=== PATIENT | male | born 1940 | race Caucasian/White ===

== ENCOUNTER 2016-09-16 08:31 | Emergency (ER) | payer MEDICARE, BC ==
[2016-09-16] MEDS ORDERED: DIPHTH,PERTUSS(ACELL),TET VAC 0.5 ML VIAL IM ONE ×2 (09:02→12:33)
[2016-09-16] MEDS ORDERED: MORPHINE SULFATE 4 MG/ML SYRG ONE (09:02)
[2016-09-16] MEDS ORDERED: MORPHINE SULFATE 4 MG/ML SYRG SC ONE (09:02)
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
[2016-09-16 10:04] LABS: Hematocrit 57.1 % (42.0-52.0); Hemoglobin 19.1 gm/dL (13.5-18.0); Mean Cell Volume 93.5 fl (78-100); Mean Corpuscular Hemoglobin 31.3 pg (27-31); Mean Corpuscular Hgb Conc 33.5 g/dl (32-36); Mean Platelet Volume 9.8 fl (6.0-9.5); Neutrophil % 83.8 % (42-75.0); Platelet Count 217 K/mm3 (150-450); Red Blood Count 6.11 M/mm3 (4.7-6.0); Red Cell Distribution Width 13.2 % (11.5-14.0); White Blood Count 20.3 K/mm3 (4.0-10.5)
[2016-09-16] MEDS ORDERED: HYDROmorphone HCL 1 MG/ML DISP.SYRIN IV ONE ×2 (10:07→12:47)
[2016-09-16] MEDS ORDERED: HYDROmorphone HCL 1 MG/ML DISP.SYRIN ONE ×2 (10:08→12:46)
[2016-09-16 10:11] LABS: Prothrombin Time (Patient) 11.6 Seconds (9.4-11.4)
[2016-09-16] MEDS ORDERED: ONDANSETRON HCL/PF 2 MG/ML VIAL ONE (10:11)
[2016-09-16 10:12] LABS: INR 1.12 INR (0.90-1.10)
[2016-09-16] MEDS ORDERED: ONDANSETRON HCL/PF 2 MG/ML VIAL IV ONE (10:15)
[2016-09-16 10:16] LABS: Albumin * 4.1 gm/dl (3.4-5.0); Anion Gap 9.8 mmol/L (6.8-13.8); BUN/Creatinine Ratio 17.8 (9.0-21.6); Bilirubin, Total 0.9 mg/dL (0.0-1.1); Calcium * 9.4 mg/dL (7.9-10.9); Carbon Dioxide 33.8 mmol/L (24-32.6); Potassium 4.6 mmol/L (3.4-4.6)
[2016-09-16 12:05] LABS: Urine Bilirubin Negative (NEGATIVE); Urine Blood 250 /ul (NEGATIVE); Urine Ketone Negative (NEGATIVE); Urine Nitrite Negative (NEGATIVE); Urine Protein 100 mg/dL (NEGATIVE); Urine Urobilinogen Normal (NORMAL)
[2016-09-16 12:15] LABS: Urine Appearance Clear; Urine Bacteria 1+; Urine Color Dark Yellow; Urine WBC 0-5 /hpf (0-5)
[2016-09-16] MEDS ORDERED: NORMAL SALINE 1,000 ML IV ONE ×2 (12:22→12:50)
[2016-09-16] MEDS ORDERED: SODIUM BICARBONATE 1 MEQ/ML SYRG IV ONE (12:35)
[2016-09-16] MEDS ORDERED: HYDROmorphone HCL 1 MG/ML DISP.SYRIN IV PRN (12:51)
[2016-09-16] MEDS ORDERED: SODIUM BICARBONATE IV STA ×2 (13:02→15:09)
[2016-09-16] MEDS ORDERED: NORMAL SALINE IV STA ×2 (13:02→15:09)
[2016-09-16] MEDS ORDERED: LABETALOL HCL 5 MG/ML VIAL IV ONE ×2 (14:23→14:25)
[2016-09-16 14:26] VITALS: BP 167/116
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
[2016-09-16] MEDS ORDERED: NORMAL SALINE 1,000 ML IV PRN ×2 (14:52→15:08)
[2016-09-16] MEDS ORDERED: NORMAL SALINE IV ONE (15:09)
[2016-09-16] MEDS ORDERED: SODIUM BICARBONATE IV ONE (15:09)
[2016-09-16] MEDS ORDERED: IMIPRAMINE HCL 25 MG TABLET PO SCH (21:00)
[2016-09-17] MEDS ORDERED: LACTOBACILLUS ACIDOPHILUS 100 CAP BTL PO SCH (09:00)
== END 2016-09-16 15:23 | disposition short-term general hospital (02) ==
LOC: ER 08:31 → UNDOADMIN 11:48 → MS 11:48 → ER 15:23
DX: S22.42XA Multiple fractures of ribs, left side, initial encounter for closed fracture (principal); S27.321A Contusion of lung, unilateral, initial encounter; V18.0XXA Pedal cycle driver injured in noncollision transport accident in nontraffic accident, initial encounter; Y93.55 Activity, bike riding; S80.212A Abrasion, left knee, initial encounter; Z23 Encounter for immunization
CPT/HCPCS: 36415; 71020; 71100; 71260; 73010; 74177; 80053; 81001; 83690; 85025; 85610; 90471; 90715; 96372; 96374; 96375; 99285; J2405

== ENCOUNTER 2016-10-09 15:44 | Emergency (ER) | payer MEDICARE, BC ==
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
[2016-10-10 16:31] VITALS: BP 146/98
== END 2016-10-09 16:59 | disposition home or self-care (01) ==
LOC: ER 15:44
DX: M70.41 Prepatellar bursitis, right knee (principal); Z85.46 Personal history of malignant neoplasm of prostate

== ENCOUNTER 2017-05-12 21:27 | Inpatient (IN) | payer MEDICARE, BC ==
[2017-05-12] MEDS ORDERED: ASPIRIN 81 MG TAB.CHEW PO ONE (21:42)
[2017-05-12] MEDS ORDERED: ASPIRIN 81 MG TAB.CHEW ONE (21:43)
[2017-05-12 21:52] LABS: Hematocrit 50.7 % (42.0-52.0); Hemoglobin 17.5 gm/dL (13.5-18.0); Mean Cell Volume 90.2 fl (78-100); Mean Corpuscular Hemoglobin 31.1 pg (27-31); Mean Corpuscular Hgb Conc 34.5 g/dl (32-36); Mean Platelet Volume 9.9 fl (6.0-9.5); Platelet Count 218 K/mm3 (150-450); Red Blood Count 5.62 M/mm3 (4.7-6.0); Red Cell Distribution Width 13.3 % (11.5-14.0); White Blood Count 15.9 K/mm3 (4.0-10.5)
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
[2017-05-12 21:55] LABS: Total Cells Counted 100
[2017-05-12 22:09] LABS: Albumin * 3.4 gm/dl (3.4-5.0); Anion Gap 11.3 mmol/L (6.8-13.8); BUN/Creatinine Ratio 20.2 (9.0-21.6); Bilirubin, Total 1.1 mg/dL (0.0-1.1); Calcium * 8.8 mg/dL (7.9-10.9); Carbon Dioxide 30.4 mmol/L (24-32.6); Potassium 3.7 mmol/L (3.4-4.6); Total Protein 7.7 gm/dL (6.2-8.2)
[2017-05-12 22:10] LABS: Troponin I 0.028 ng/ml (0.00-0.10)
[2017-05-12 22:28] LABS: Band 1 % (0-2.0); Basophil 1 % (0-1); Lymphocyte 18 % (20-51); Monocyte 11 % (0-9); Neutrophil 69 % (42-75)
[2017-05-12 22:31] LABS: Giant Platelets 1+; Platelet Estimate Normal (NORMAL); RBC Morphology Normal (NORMAL)
[2017-05-12 22:32] LABS: Toxic Granulation 3+
[2017-05-12] MEDS ORDERED: ENOXAPARIN SODIUM 100 MG/ML SYRG SC ONE ×3 (23:41→23:48)
[2017-05-12] MEDS ORDERED: ENOXAPARIN SODIUM 30 MG/0.3 ML SYRG SC ONE ×2 (23:46→23:48)
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
[2017-05-13] MEDS: FAMOTIDINE 20 MG TABLET PO SCH ×2 (03:39→08:26)
[2017-05-13] MEDS: ACETAMINOPHEN 325 MG TABLET PO PRN ×2 (03:48→10:11)
[2017-05-13 06:19] LABS: Hematocrit 47.7 % (42.0-52.0); Hemoglobin 16.5 gm/dL (13.5-18.0); Mean Cell Volume 90.5 fl (78-100); Mean Corpuscular Hemoglobin 31.3 pg (27-31); Mean Corpuscular Hgb Conc 34.6 g/dl (32-36); Mean Platelet Volume 10.8 fl (6.0-9.5); Platelet Count 193 K/mm3 (150-450); Red Blood Count 5.27 M/mm3 (4.7-6.0); Red Cell Distribution Width 13.2 % (11.5-14.0); White Blood Count 14.8 K/mm3 (4.0-10.5)
[2017-05-13 06:21] LABS: Total Cells Counted 100
[2017-05-13 06:34] LABS: Atypical (Reactive) Lymph 2 % (0-2); Band 1 % (0-2.0); Lymphocyte 11 % (20-51); Monocyte 11 % (0-9); Neutrophil 75 % (42-75); Neutrophil # 11.1 K/mm3 (1.3-6.0); Platelet Estimate Normal (NORMAL); RBC Morphology Normal (NORMAL)
[2017-05-13] MEDS: MULTIVITAMINS 1 CAP CAPSULE PO SCH (08:26)
[2017-05-13] MEDS: CHOLECALCIFEROL 1,000 UNIT CAPSULE PO SCH (08:26)
[2017-05-13] MEDS: IMIPRAMINE HCL 25 MG TABLET PO SCH ×2 (08:26→21:49)
[2017-05-13] MEDS ORDERED: ENOXAPARIN SODIUM 100 MG/ML SYRG SC SCH (12:00)
[2017-05-13] MEDS ORDERED: RIVAROXABAN 15 MG TABLET PO SCH (12:15)
[2017-05-13] MEDS ORDERED: APIXABAN 5 MG TABLET PO SCH (12:45)
--- NOTE | 2017-05-13 13:04 | PN ---
Mathieu Note - Interim Date: 05/13/17 Time: 12:40 Narrative: 05/13/17 12:40 I initially saw Mr. Gonzalez at about 7:30 this morning. Weight, alert and conversant and seemed stable and in no respiratory distress. I have been told that he was admitted with pulmonary emboli and both lungs but was stable and no respiratory distress. A chest x-ray was nonrevealing but the CAT scan shows very different picture. This is actually a massive saddle pulmonary embolus that is pressing on the septum of the heart and flattening exam. The ultrasound report came back later this morning with findings of deep femoral vein thrombosis no doubt tendinitis of the saddle embolus. He has remained stable through the morning has not had any respiratory distress. He does have some pain in the right side of his chest especially with deep inspiration. He is taking Tylenol which helps but is not helping adequately. 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 He inquired about his troponin initial vital signs and his current condition. He stated that he could not trust the static vital signs and would need to get him up and walk him some to see if he is desaturating his oxygen or not. He suggested that if he remains stable during ambulation, did not desaturate, did not become tachycardiac, or lightheaded then he can be dismissed on oral medication tomorrow. On the other hand if he were to desaturate and a respiratory complications from walking then he may have to stay in the hospital longer. He still recommends that he would not need to be transferred to a hospital with thrombolytic therapy unless he became acutely worse and did not recommend transferring prophylactically. Therefore I will keep him here today progresses ambulation see how he tolerates that. I will start him on our request 10 mg by mouth twice a day and continue the Lovenox today. I reviewed all of this with Mr. Gonzalez this afternoon and he expresses understanding. I have told him that this is a life-threatening saddle embolus and that it cannot be taken lightly but that he was very stable and doing well. We will know tomorrow whether he will be dismissed tomorrow or not.
[2017-05-13] MEDS: ACETAMINOPHEN WITH CODEINE 1 EACH TABLET PO PRN ×2 (13:37→18:56)
[2017-05-13] MEDS: SENNOSIDES/DOCUSATE SODIUM 1 TAB TABLET PO SCH ×2 (13:41→21:48)
[2017-05-13] MEDS: APIXABAN 5 MG TABLET PO SCH (21:47)
[2017-05-14] MEDS: ACETAMINOPHEN 325 MG TABLET PO PRN (08:57)
[2017-05-14] MEDS: CHOLECALCIFEROL 1,000 UNIT CAPSULE PO SCH (08:58)
[2017-05-14] MEDS: FAMOTIDINE 20 MG TABLET PO SCH (08:59)
[2017-05-14] MEDS: MULTIVITAMINS 1 CAP CAPSULE PO SCH (08:59)
[2017-05-14] MEDS: APIXABAN 5 MG TABLET PO SCH ×2 (08:59→21:43)
[2017-05-14] MEDS: IMIPRAMINE HCL 25 MG TABLET PO SCH ×2 (08:59→21:43)
--- NOTE | 2017-05-14 12:20 | PN ---
Subjective - Date and Time Seen Date: 05/14/17 Time: 08:15 Subjective Narrative: Mr. Gonzalez is attended by his in the room during the examination this morning on morning rounds. When I came in to the room Mr. Gonzalez is sitting up in a chair with thigh high support hose on. Also I noticed that he had oxygen on which had been placed on during the night because of saturations into the 80 % area. He has not been on oxygen since admission until this morning. His vital signs have been stable. In talking with his she reveals that he has obstructive sleep apnea and has had a sleep lab study showing that he stops breathing 43 times an hour which may be causing some of the hypoxia were witnessing during monitoring. Therefore, I'll ambulate him monitoring oxygen again this morning to see if there's been a decrease in his walking distance tolerance before desaturating. This was actually done in my presence this morning. He been able to walk the length of the medrano yesterday and today by the time he reached his door he was at 90%. He stopped to rest and it climbed back to 92%. He walked a distance to the next patient room door and dropped into the 88% area. This is a marked reduction in his walking distance tolerance before hypoxemia. I had initially planned on discharging him today for current criteria for management of pulmonary emboli even though this is a massive one. He was started on Lovenox on admission and then changed to Eliquis last night. He seems to have tolerated both well. His also reports that he has short-term memory impairment now. This is probably aggravated a great deal by his sleep apnea. I advised her we will address both of those problems once we get past the crisis of his pulmonary embolus. I have encouraged both of them to stay the course and not yet anxious or upset about having to be in the hospital as he has a life-threatening pulmonary embolus and he is going to get into severe distress than I reviewed whether it be here than at home. They express understanding. Objective Objective Narrative: Vital signs show heart rate in the 102-107 range. His respiratory rate however has increased from 18-20 yesterday to 28-32 today is probably does not appear labored however. His heart remains in normal sinus rhythm. His breath sounds are distant but no adventitia is present. Breath sounds are diminished. There is no edema. He is alert and conversant pleasant and cooperative. - Review of Systems Generalized/Overall Review: Denies: Chills, Fever, Malaise, Diaphoresis, Fatigue , Weight loss, Weight gain EENTM: Reports: No Symptoms Reported Respiratory: Reports: Shortness of Breath, Other - Recorded hypoxemia last night probably aggravated by his obstructive sleep apnea. Cardiac: Reports: No Symptoms Reported. Denies: Edema, Palpitations, Syncope Abdominal: Reports: No Symptoms Reported Genitourinary Symptoms: Reports: No Symptoms Reported Musculoskeletal Complaints: Reports: No Symptoms Reported Neurological: Reports: No Symptoms Reported, Other Skin: Reports: No Symptoms Reported Endocrine: Reports: No Symptoms Reported - Vitals Vitals: Last Vital Signs Temp 37.6 C H 05/14/17 11:09 Pulse 107 H 05/14/17 11:09 Resp 32 H 05/14/17 11:09 BP 157/100 05/14/17 11:09 Pulse Ox 93 05/14/17 11:09 - Abnormal Lab Findings Abnormal Lab Findings: The troponin remains normal. - Exam Constitutional: Present: Alert, Oriented x3, Cooperative, Well nourished, Mild distress, Elderly ENT Exam: Present: normal ENT inspection, hearing grossly normal, pharynx normal , TMs normal, hard of hearing Neck: Present: non-tender, normal inspection, trachea midline, other - Neck veins aren't distended.. Absent: full range of motion Breasts: Present: Nontender Respiratory: Present: lungs clear, no accessory muscle use, decreased breath sounds. Absent: respiratory distress, accessory muscle use, crackles, rales, rhonchi, stridor, wheezing, expiration (prolonged), inspiration Cardiovascular/Chest: Present: normal peripheral pulses, regular rate, rhythm, no chest tenderness, no edema, no gallop, no JVD, no murmur, no rub, JVD, tachycardia, chest tender Abdomen: Present: Normal bowel sounds, soft, nontender, nondistended, no rebound tenderness /Rectal: Present: Exam deferred Extremity: Present: normal range of motion, non-tender, normal inspection, no pedal edema, no calf tenderness, normal capillary refill Skin Exam: Present: normal color, warm/dry, no cyanosis Lymphatic: Present: no adenopathy 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 Appearance: Present: appropriate appearance, neat, impaired insight, impaired recent memory Eye contact: Present: cooperative, good eye contact, normal speech Thoughts: Present: normal thought pattern, no apparent hallucination Assessment/Plan - Problems/Diagnosis (1) Multiple pulmonary emboli Problem: Acute (2) Nocturnal hypoxemia Problem: Acute (3) Exercise hypoxemia Problem: Acute (4) Tachypnea on examination Problem: Acute (5) Obstructive sleep apnea Problem: Acute (6) Pleural effusion, right Problem: Acute (7) DVT (deep venous thrombosis) Problem: Acute Qualifiers: DVT location: lower extremity Affected thrombotic vein of extremity: femoral Chronicity: acute Laterality: right Qualified Code(s): I82.411 - Acute embolism and thrombosis of right femoral vein Narrative: In speaking with Mrs. Gonzalez, she states that Mr. Gonzalez started having swelling in his right leg about 3 weeks ago. He then complained of some shortness of breath about 2 weeks ago and then some tightness across his chest about a week ago. He has some shortness of breath but that seemed to improve. She states she has witnessed him stopping breathing. He snores a lot and then stops breathing for several seconds and then begins just around and rebreathing again. It is likely the part of the hypoxemia that occurred during the night last night may be all or in part from his sleep apnea. However his tachypnea rise in the 28-32 range and decrease in exercise tolerance before hypoxemia is almost certainly all from his saddle embolus.
[2017-05-14] MEDS ORDERED: TAMSULOSIN HCL 0.4 MG CAP.SR.24H PO SCH (21:15)
--- NOTE | 2017-05-14 21:16 | PN ---
Progess Note - Interim Date: 05/14/17 Time: 21:13 Narrative: 05/14/17 21:13 Patient was seen walking in [address] pleasantly confused , he his disoriented x2. pt stated he is not able to void but been dribbling. Per Dr Cook he has some short term memory and does better when family is around. His spo2 after walking on room air 95-100%. Will obtain clean cath urine for UA possible due to his confusion. will initiate flomax 0.4mg now and continue to monitor pt overnight. Case discussed with Dr cook.
[2017-05-14] MEDS: SENNOSIDES/DOCUSATE SODIUM 1 TAB TABLET PO SCH (21:43)
[2017-05-14] MEDS: ACETAMINOPHEN WITH CODEINE 1 EACH TABLET PO PRN (23:00)
[2017-05-15 03:21] LABS: Urine Bilirubin Negative (NEGATIVE); Urine Blood 250 /ul (NEGATIVE); Urine Ketone Negative (NEGATIVE); Urine Nitrite Negative (NEGATIVE); Urine Protein 30 mg/dL (NEGATIVE); Urine Specific Gravity >=1.030 SP.GR. (1.005-1.030); Urine Urobilinogen Normal (NORMAL)
[2017-05-15 03:25] LABS: Urine Amorphous Sediment Few - 1+ (NONE-FEW); Urine Appearance Clear (CLEAR); Urine Bacteria None Seen; Urine Color Yellow; Urine Mucus Few - 1+; Urine WBC 0-5 /hpf (0-5)
[2017-05-15] MEDS: CHOLECALCIFEROL 1,000 UNIT CAPSULE PO SCH (09:38)
[2017-05-15] MEDS: APIXABAN 5 MG TABLET PO SCH (09:38)
[2017-05-15] MEDS: FAMOTIDINE 20 MG TABLET PO SCH (09:38)
[2017-05-15] MEDS: IMIPRAMINE HCL 25 MG TABLET PO SCH (09:38)
[2017-05-15] MEDS: MULTIVITAMINS 1 CAP CAPSULE PO SCH (09:38)
--- NOTE | 2017-05-15 10:22 | ECHO ---
This report is available in the EMR
--- NOTE | 2017-05-15 12:05 | DS ---
(1) Saddle pulmonary embolus Diagnosis(s): Initially reported to me as bilateral pulmonary emboli, the CT of the chest and echocardiogram revealed that this is a massive saddle pulmonary embolus with right sided heart strain per echo. The right ventricle is moderately dilated. The right ventricular systolic function is mild to moderately reduced. The right atrium is moderately dilated. The CT shows pressure on the septum as well. Problem: Acute Qualifiers: Chronicity: acute Acute cor pulmonale presence: without acute cor pulmonale Qualified Code(s): I26.92 - Saddle embolus of pulmonary artery without acute cor pulmonale (2) Multiple pulmonary emboli Problem: Acute (3) DVT (deep venous thrombosis) Problem: Acute Qualifiers: DVT location: lower extremity Affected thrombotic vein of extremity: femoral Chronicity: acute Laterality: right Qualified Code(s): I82.411 - Acute embolism and thrombosis of right femoral vein (4) Nocturnal hypoxemia Problem: Acute (5) Obstructive sleep apnea Problem: Acute (6) Exercise hypoxemia Problem: Acute (7) Tachypnea on examination Problem: Acute (8) Pleural effusion, right Problem: Acute Description of Stay: Mr. Gonzalez is a 76-year-old male who presented to the emergency room with shortness of breath. In the emergency room they determined that he had multiple pulmonary emboli and the CT scan of the chest showed a massive saddle embolus. Surprisingly he was not in respiratory distress in the emergency room. He was subsequently admitted for multiple pulmonary emboli. A subsequent ultrasound of the leg shows a right femoral vein thrombus noted at the nidus of his PEs. His was present for me to visit with 2 days after admission and provided more history. About 3 weeks previous he had noticed some swelling in his right leg. About 2 weeks previous to admission he had complained of some shortness of breath and some chest discomfort. He relates a story of about a week ago where he had been driving and had chest pressure and discomfort. On admission he has some right chest pain with deep inspiration which worsened after admission. That has dissipated and he hasn't had any complaints of that in the last 48 hours[address] I spoke with Dr. Stafford( behavioral intervention specialist at [facility]) and reviewed the case with him. He believed with current guidelines he can be treated with oral anticoagulant medicine at home as long as there was no progression of shortness of breath or oxygen demand. He also recommended repeating the troponin level and if it is negative it would enforce the safety of using oral anti- coagulants. He was placed on Avenue's day before yesterday. That night he had oxygen saturations dropped to 80 while sleeping. The next morning I had him walk and he can only walk to the door of his room and his saturation dropped below 90%. He recovered back to 92% and then walked to the next patient's room only to desat again. Last night and today however he's been able to walk the full length of the med[place] without any further desaturation doing much better. He did have mental confusion last night and was disoriented to time date and place but is really oriented this morning. Therefore he'll be discharged to home on oral L request and other meds as listed. Procedures Performed: see notes below List Procedures: 1. CT chest 2. Oxygen vital sign evaluation with walking Discharge Location: Home Disposition: Home self-care Condition: Good Discharge Activity: No Lifting Discharge Diet: General/regular food Referrals: Varun Pichardo MD [Primary Care Provider] - Problem Oriented Discharge Instructions to Patient/Family: Pulmonary Embolism, Deep Vein Thrombosis Additional Patient Instructions (free text): -Please make TCM appointment unless longterm discharge. Thank you! Yaneli @ [employer] [facility]. Staff will call with follow up appointment. Prescriptions (Any new or edited meds): Apixaban [Eliquis] 10 mg PO BID #40 tablet NS Sennosides/Docusate Sodium [Senokot-S] 2 tab PO HS #60 tablet NS Tamsulosin HCl [Flomax] 0.4 mg PO DAILY@1800 #30 cap.sr.24h NS Complete Home Medications List: Complete Home Medication List: Imipramine HCl [Tofranil] 25 mg PO BID 01/25/16 Cholecalciferol (Vitamin D3) [Vitamin D3] 1,000 unit PO DAILY 01/28/17 Naproxen Sodium [Aleve] 220 mg PO DAILY PRN 01/28/17 Multivitamin [Multivitamins] 1 each PO DAILY 05/12/17 Acetaminophen [Tylenol] 650 mg PO Q6H PRN tablet 05/15/17 Apixaban [Eliquis] 10 mg PO BID #40 tablet NS 05/15/17 Sennosides/Docusate Sodium [Senokot-S] 2 tab PO HS #60 tablet NS 05/15/17 Tamsulosin HCl [Flomax] 0.4 mg PO DAILY@1800 #30 cap.sr.24h NS 05/15/17
[2017-05-15 12:19] VITALS: BP 147/94
[2017-05-18 08:15] LABS: Protein C Activity 55 % normal (70-180)
[2017-05-18 08:16] LABS: Protein C Antigen 80 % normal (70-140)
== END 2017-05-15 12:45 | disposition home or self-care (01) | DRG 299 ==
LOC: ER 21:27 → MS 05-13 00:06 → OBSVTOIN 05-13 12:49
PROVIDERS: ADMIT Nurse Practitioner; ATTEND Family Medicine
PROC: B246ZZZ Ultrasonography of Right and Left Heart (ICD-10-PCS; principal; 2017-05-14)
DX: J90 Pleural effusion, not elsewhere classified; Z85.46 Personal history of malignant neoplasm of prostate; I10 Essential (primary) hypertension; R06.82 Tachypnea, not elsewhere classified; I26.92 Saddle embolus of pulmonary artery without acute cor pulmonale; I50.811 Acute right heart failure; Z79.82 Long term (current) use of aspirin; I82.441 Acute embolism and thrombosis of right tibial vein; I82.411 Acute embolism and thrombosis of right femoral vein; R09.02 Hypoxemia

== ENCOUNTER 2018-07-06 17:20 | Observation (INO) ==
[2018-07-06 17:51] LABS: Hematocrit 50.7 % (42.0-52.0); Hemoglobin 16.7 gm/dL (13.5-18.0); Mean Cell Volume 92.5 fl (78-100); Mean Corpuscular Hemoglobin 30.5 pg (27-31); Mean Corpuscular Hgb Conc 32.9 g/dl (32-36); Mean Platelet Volume 9.8 fl (8-11.3); Neutrophil # 7.3 K/mm3 (1.3-6.0); Platelet Count 213 K/mm3 (150-450); Red Blood Count 5.48 M/mm3 (4.7-6.0); Red Cell Distribution Width 13.7 % (11.5-14.0); White Blood Count 9.4 K/mm3 (4.0-10.5)
[2018-07-06 18:03] LABS: INR 1.27 INR (0.92-1.08); Partial Thrombolplastin Time 28.9 Seconds (24-32); Prothrombin Time (Patient) 12.5 Seconds (9.1-10.7)
[2018-07-06 18:04] LABS: Albumin * 3.5 gm/dl (3.4-5.0); Anion Gap 14.3 mmol/L (6.8-13.8); BUN/Creatinine Ratio 17.8 (9.0-21.6); Bilirubin, Total 0.7 mg/dL (0.0-1.1); Ca. Corrected For Albumin 9.2 mg/dL (8.4-10.2); Calcium * 9.1 mg/dL (7.9-10.9); Carbon Dioxide 23.8 mmol/L (24-32.6); Magnesium 1.9 mg/dL (1.2-2.8); Potassium 4.1 mmol/L (3.4-4.6); Total Protein 7.3 gm/dL (6.2-8.2)
--- NOTE | 2018-07-06 18:16 | ERNOTE ---
Dizziness ER Record Presenting Symptoms: dizziness, weakness Time Seen by Provider: 07/06/18 17:25 Source: patient, family Exam Limitations: no limitations Immunizations: IMMUNIZATION HX Immunizations Up to Date Yes History of Influenza Vaccine No Hx Pneumococcal Vaccination No Allergies/Adverse Reactions: Allergies Allergy/AdvReac Type Severity Reaction Status Date / Time No Known Allergies Allergy Verified 07/06/18 17:28 Home Medications: HOME MEDICATIONS Cholecalciferol (Vitamin D3) [Vitamin D3] 1,000 unit PO DAILY 01/28/17 [Last Taken Unknown] Multivitamin [Multivitamins] 1 ea PO DAILY 05/12/17 [Last Taken Unknown] Acetaminophen [Tylenol] 650 mg PO Q6H PRN tab 05/15/17 [Last Taken Unknown] Apixaban [Eliquis] 10 mg PO BID #40 tab NS 05/15/17 [Last Taken Unknown] Sennosides/Docusate Sodium [Senokot-S] 2 tab PO HS #60 tab NS 05/15/17 [Last Taken Unknown] imipramine 25 mg tablet 25 mg PO BID #60 tab 04/06/18 [Last Taken Unknown] sulfamethoxazole 800 mg-trimethoprim 160 mg tablet 1 tab PO Q12H #28 tab 06/23/18 [Last Taken Unknown] - History of Present Illness Narrative: Patient states that yesterday, over 24 hours ago, patient developed dizziness and was having some difficulty coordinating his legs. He thought it was perhaps dehydration from his UTI and declined to come in however we did get better showed up in the emergency department. Timing and Duration: sudden onset Noted on awakening:: Yes Severity: max: moderate Severity: currently: moderate Decreased ability to stand/walk:: Present: weak, difficult, off balance Usually:: Present: walks w/o assistance Modifying Factors - (Improves): Reports: nothing Modifying Factors - (Worsens): Reports: nothing Review of Systems - Review of Systems Constitutional: Present: See HPI EYE: Present: no symptoms reported ENT: Present: no symptoms reported Respiratory: Present: no symptoms reported Cardiology: Present: no symptoms reported Gastrointestinal/Abdominal: Present: no symptoms reported Genitourinary: Present: no symptoms reported Musculoskeletal: Present: no symptoms reported Skin: Present: no symptoms reported Neurological: Present: See HPI Endocrine: Present: no symptoms reported Hematologic/Lymphatic: Present: no symptoms reported Psych: Present: no symptoms reported Medical History (Updated 06/26/18 @ 10:34 by Varun Pichardo MD) Urinary incontinence (Chronic) Onset Date: ~03/03/14 Erectile dysfunction (Chronic) Onset Date: ~03/03/14 Constipation (Chronic) Onset Date: ~09/10/12 Balanitis (Chronic) Onset Date: ~03/03/14 Seborrheic dermatitis of scalp (Chronic) Obstructive sleep apnea (Chronic) History of blood clots (Chronic) DVT (deep venous thrombosis) Onset Date: Unknown Kidney laceration Onset Date: Unknown No pertinent family history Onset Date: Unknown Prostate cancer Onset Date: ~04/01/15 Pulmonary contusion Onset Date: Unknown Pulmonary embolism Onset Date: Unknown Retroperitoneal hemorrhage Onset Date: Unknown Rib fracture Onset Date: Unknown Surgical History: Surgical History (Updated 06/23/18 @ 15:52 by Britany Colon RN) H/O elbow surgery Onset Date: Unknown H/O wisdom tooth extraction Onset Date: Unknown History of colonoscopy Onset Date: ~2001 History of prostatectomy Onset Date: ~2001 Hx of cataract surgery Onset Date: Unknown Hx of tonsillectomy Onset Date: Unknown S/P rotator cuff repair Onset Date: Unknown Family History: Family History (Updated 07/06/18 @ 17:28 by Franci Guerrero RN) Other No pertinent family history Social History: Preferred Language Turkmen Do you have any quaker or No cultural preference? Smoking Status Never smoker Abuse History No History of abuse Psych History No pertinent hx Alcohol Use none Drug Use none (Last Updated 06/26/18 @ 10:35 by Varun Pichardo MD) No Social History Section defined Physical Exam - Physical Exam General Appearance: Present: wd/wn, alert, mild distress Head Exam: Present: normal inspection, no evidence of injury Eye Exam: Normal inspection: bilateral, PERRL: bilateral Ears, Nose, Throat: Present: normal ENT inspection, H, normal pharynx Neck: Present: normal inspection, nontender Respiratory: Present: no respiratory distress, normal breath sounds, no accessory muscle use, chest nontender, lungs clear Cardiovascular/Chest: Present: regular rate, rhythm, no murmur, normal peripheral pulses Gastrointestinal/Abdominal: Present: normal bowel sounds, nontender, nondistended, soft, no organomegaly Rectal Exam: Present: deferred Back Exam: Present: normal inspection, normal range of motion Extremity Exam: Present: normal inspection, non-tender, no edema, normal range of motion Neurological Exam: Present: alert, oriented, 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 Absent: normal cerebellar test Skin Exam: Present: normal color, warm/dry Lymphatic Exam: Present: no adenopathy Progress - Results and Orders Patient's Lab Results:: I have reviewed the patient's lab results. - Vital Signs Patient's Vital Signs:: I have reviewed the patient's vital signs. Vital Signs: Vital Signs 07/06/18 17:26 07/06/18 17:43 Temperature 37.1 C Pulse Rate 95 95 Respiratory Rate 23 H Blood Pressure 138/81 O2 Sat by Pulse Oximetry 91 L - EKG EKG #1 EKG: NSR EKG read: Reviewed by me - CT/Ultrasound CT/Ultrasound Narrative: I reviewed the head CT - Progress/Reassessment Chief Complaint: Dizziness Plan - Plan Plan: Patient is worrisome for posterior CVA as he has both dizziness and poor coordination of his legs. He has had multiple DVTs in the past as well as multiple PE's so he is certainly prone to forming clots. While TPA was considered, he was over 24 hours out and did not meet the necessary criteria. He is also outside of consideration for interventional radiology for the same reasons. Departure Clinical Impression: Vertigo CVA (cerebral vascular accident) Qualifiers: CVA mechanism: unspecified Qualified Code(s): I63.9 - Cerebral infarction, unspecified - Departure Disposition: Still a patient Condition: Serious Referrals: Varun Pichardo MD [Primary Care Provider] -
--- NOTE | 2018-07-06 19:04 | HP ---
Chief Complaint - Chief Complaint Date of Service: 07/06/18 Time of Service: 18:25 Chief Complaint: Difficulty ambulating, loss of balance, dizziness History of Present Illness: 77-year-old male with a past medical history of DVT, PE, obstructive sleep apnea, constipation, prostate cancer and retroperitoneal hemorrhage presents with complaints of difficulty ambulating associated with dizziness and loss of balance. His symptoms began 1 day ago. He presented to the emergency department due to worsening of his symptoms. The ER physician was concerned for a CVA and a CT head was performed. CT head is negative for acute intracranial process. Medical History (Updated 07/07/18 @ 10:32 by Donna Cheatham MD) Urinary incontinence (Chronic) Onset Date: ~03/03/14 Erectile dysfunction (Chronic) Onset Date: ~03/03/14 Constipation (Chronic) Onset Date: ~09/10/12 Balanitis (Chronic) Onset Date: ~03/03/14 Seborrheic dermatitis of scalp (Chronic) Obstructive sleep apnea (Chronic) History of blood clots (Chronic) DVT (deep venous thrombosis) Onset Date: Unknown Kidney laceration Onset Date: Unknown No pertinent family history Onset Date: Unknown Prostate cancer Onset Date: ~04/01/15 Pulmonary contusion Onset Date: Unknown Pulmonary embolism Onset Date: Unknown Retroperitoneal hemorrhage Onset Date: Unknown Rib fracture Onset Date: Unknown Surgical History: Surgical History (Updated 07/06/18 @ 19:04 by Donna Cheatham MD) H/O elbow surgery Onset Date: Unknown H/O wisdom tooth extraction Onset Date: Unknown History of colonoscopy Onset Date: ~2001 History of prostatectomy Onset Date: ~2001 Hx of cataract surgery Onset Date: Unknown Hx of tonsillectomy Onset Date: Unknown S/P rotator cuff repair Onset Date: Unknown Family History: Family History (Updated 07/06/18 @ 17:28 by Franci Guerrero RN) Other No pertinent family history Social History: Preferred Language Maori Do you have any islam or No cultural preference? Smoking Status Never smoker Abuse History No History of abuse Psych History No pertinent hx Alcohol Use none Drug Use none (Last Updated 06/26/18 @ 10:35 by Varun Pichardo MD) No Social History Section defined Review Of Systems (GEN) - Review of Systems Generalized/Overall Review: Absent: Fever EENTM: Absent: Eye Pain Respiratory: Absent: Shortness of Breath Cardiac: Absent: Chest Pain Abdominal: Absent: Abdominal Pain Neurological: Present: Other - Difficulty ambulating, loss of balance and dizziness Misc: All systems neg except as marked Immunizations: IMMUNIZATION HX Immunizations Up to Date Yes History of Influenza Vaccine No Hx Pneumococcal Vaccination No Allergies/Adverse Reactions: Allergies Allergy/AdvReac Type Severity Reaction Status Date / Time No Known Allergies Allergy Verified 07/06/18 17:28 Home Medications: HOME MEDICATIONS Cholecalciferol (Vitamin D3) [Vitamin D3] 1,000 unit PO DAILY 01/28/17 [Last Taken Unknown] Multivitamin [Multivitamins] 1 ea PO DAILY 05/12/17 [Last Taken Unknown] Acetaminophen [Tylenol] 650 mg PO Q6H PRN tab 05/15/17 [Last Taken Unknown] imipramine 25 mg tablet 25 mg PO BID #60 tab 04/06/18 [Last Taken Unknown] sulfamethoxazole 800 mg-trimethoprim 160 mg tablet 1 tab PO Q12H #28 tab 06/23/18 [Last Taken Unknown] Aspirin [Aspir-Low] 81 mg PO DAILY 07/06/18 [Last Taken Unknown] Sennosides/Docusate Sodium [Senokot-S] 2 tab PO HS PRN 07/06/18 [Last Taken Unknown] Exam - Exam Vital Signs: Vital Signs - Last Taken Temp 37.1 C 07/06/18 17:26 Pulse 95 07/06/18 17:43 Resp 23 H 07/06/18 17:26 BP 138/81 07/06/18 17:26 Pulse Ox 91 L 07/06/18 17:26 Constitutional: Present: Alert, Cooperative, Well developed, Well nourished, No distress, Elderly ENT Exam: Present: hard of hearing Eye Exam: bilateral eye: normal inspection, PERRL Neck: Present: non-tender, supple, trachea midline. Absent: lymphadenopathy (R), lymphadenopathy (L) Back Exam: Present: normal inspection Respiratory: Present: no respiratory distress, no accessory muscle use - Mild in bases, crackles Cardiovascular/Chest: Present: normal peripheral pulses, regular rate, rhythm, no edema, no murmur Peripheral Pulses: dorsalis-pedis (R): 2+, dorsalis-pedis (L): 2+ Abdomen: Present: Normal bowel sounds, soft, nontender Extremity: Present: no pedal edema. Absent: leg pain Skin Exam: Present: normal color, warm/dry Neurologic: Present: alert, normal mood/affect, dizzy/light-headedness. Absent: aphasia, facial droop, motor weakness - No motor weakness of upper and lower extremities. 5 out of 5 strength throughout Appearance: Present: appropriate appearance - Is, appropriate insight Eye contact: Present: cooperative, good eye contact Thoughts: Present: normal thought pattern - is is, normal mood /affect - so Diagnostic Studies: Abnormal Lab Results 07/06/18 07/06/18 07/06/18 Range/Units 17:42 17:42 17:42 Immature Gran # (Auto) 0.04 H (0.000-0.0310) K/mm3 Neutrophils % 77.0 H (42-75.0) % Lymphocytes % 8.6 L (20-51) % Monocytes % 12.2 H (0.0-9) % Neutrophils # 7.3 H (1.3-6.0) K/mm3 Lymphocytes # 0.81 L (1.5-3.5) k/mm3 Monocytes # 1.2 H (0.0-1.0) k/mm3 PT 12.5 H (9.1-10.7) Seconds INR (Anticoag Therapy) 1.27 H (0.92-1.08) INR Sodium 131 L (132-142) mmol/L Carbon Dioxide 23.8 L (24-32.6) mmol/L Anion Gap 14.3 H (6.8-13.8) mmol/L Random Glucose 115 H (70-110) mg/dL Laboratory Results WBC 9.4 K/mm3 (4.0-10.5) 07/06/18 17:42 RBC 5.48 M/mm3 (4.7-6.0) 07/06/18 17:42 Hgb 16.7 gm/dL (13.5-18.0) 07/06/18 17:42 Hct 50.7 % (42.0-52.0) 07/06/18 17:42 MCV 92.5 fl (78-100) 07/06/18 17:42 MCH 30.5 pg (27-31) 07/06/18 17:42 MCHC 32.9 g/dl (32-36) 07/06/18 17:42 RDW 13.7 % (11.5-14.0) 07/06/18 17:42 Plt Count 213 K/mm3 (150-450) 07/06/18 17:42 MPV 9.8 fl (8-11.3) 07/06/18 17:42 Immature Gran % (Auto) 0.40 % (0.001-0.429) 07/06/18 17:42 Immature Gran # (Auto) 0.04 K/mm3 (0.000-0.0310) H 07/06/18 17:42 77.0 % (42-75.0) H 07/06/18 17:42 8.6 % (20-51) L 07/06/18 17:42 12.2 % (0.0-9) H 07/06/18 17:42 1.2 % (0.0-3.0) 07/06/18 17:42 0.6 % (0.0-1.0) 07/06/18 17:42 Nucleated RBC % 0.0 k/mm3 (0-1) 07/06/18 17:42 7.3 K/mm3 (1.3-6.0) H 07/06/18 17:42 0.81 k/mm3 (1.5-3.5) L 07/06/18 17:42 1.2 k/mm3 (0.0-1.0) H 07/06/18 17:42 0.1 k/mm3 (0.0-0.7) 07/06/18 17:42 Absolute Basophils 0.1 k/mm3 (0.0-0.1) 07/06/18 17:42 PT 12.5 Seconds (9.1-10.7) H 07/06/18 17:42 INR (Anticoag Therapy) 1.27 INR (0.92-1.08) H 07/06/18 17:42 PTT ([place]) 28.9 Seconds (24-32) 07/06/18 17:42 Sodium 131 mmol/L (132-142) L 07/06/18 17:42 131 mmol/L (130-142) 07/06/18 17:42 Potassium 4.1 mmol/L (3.4-4.6) 07/06/18 17:42 Chloride 97 mmol/L (97-106) 07/06/18 17:42 Carbon Dioxide 23.8 mmol/L (24-32.6) L 07/06/18 17:42 14.3 mmol/L (6.8-13.8) H 07/06/18 17:42 BUN 16 mg/dL (6-23) 07/06/18 17:42 0.90 mg/dL (0.4-1.4) 07/06/18 17:42 Est GFR (Non-Af Amer) 87 mL/min (60-130) 07/06/18 17:42 17.8 (9.0-21.6) 07/06/18 17:42 115 mg/dL (70-110) H 07/06/18 17:42 1.2 mmol/L (0.4-2.0) 07/06/18 17:42 Calcium 9.1 mg/dL (7.9-10.9) 07/06/18 17:42 Calcium Adj for Albumin 9.2 mg/dL (8.4-10.2) 07/06/18 17:42 Magnesium 1.9 mg/dL (1.2-2.8) 07/06/18 17:42 0.7 mg/dL (0.0-1.1) 07/06/18 17:42 AST 21 U/L (0-48) 07/06/18 17:42 ALT 35 U/L (19-67) 07/06/18 17:42 78 U/L (50-170) 07/06/18 17:42 7.3 gm/dL (6.2-8.2) 07/06/18 17:42 3.5 gm/dl (3.4-5.0) 07/06/18 17:42 Assessment/Plan - Narrative Narrative: 77-year-old male with a past medical history of DVT, PE, obstructive sleep apnea, constipation, prostate cancer and retroperitoneal hemorrhage presents with complaints of difficulty ambulating associated with dizziness and loss of balance. His symptoms began 1 day ago. He presented to the emergency department due to worsening of his symptoms. The ER physician was concerned for a CVA and a CT head was performed. CT head is negative for acute intracranial process. - Assessment/Plan (1) Vertigo Problem: Acute (2) CVA (cerebral vascular accident) Problem: Suspected Qualifiers: CVA mechanism: unspecified Qualified Code(s): I63.9 - Cerebral infarction, unspecified (3) Hypertension Problem: Chronic Qualifiers: Hypertension type: essential hypertension Qualified Code(s): I10 - Essential (primary) hypertension (4) Obstructive sleep apnea Problem: Chronic
[2018-07-06] MEDS ORDERED: ACETAMINOPHEN 325 MG TABLET PO PRN (19:06)
[2018-07-06] MEDS ORDERED: SENNOSIDES/DOCUSATE SODIUM 1 TAB TABLET PO PRN (19:06)
[2018-07-06] MEDS: IMIPRAMINE HCL 25 MG TABLET PO SCH (20:42)
[2018-07-06 20:53] LABS: Urine Bilirubin Negative (NEGATIVE); Urine Ketone Negative (NEGATIVE); Urine Nitrite Negative (NEGATIVE); Urine Protein Negative (NEGATIVE); Urine Urobilinogen Normal (NORMAL); Urine pH 6.5 pH (5.0-7.0)
[2018-07-06 21:00] LABS: Urine Appearance Clear (CLEAR); Urine Bacteria TRACE; Urine Blood 5 /ul (NEGATIVE); Urine Color Yellow; Urine RBC TRACE /hpf (0-5); Urine WBC None Seen /hpf (0-5)
--- NOTE | 2018-07-07 07:18 | PN ---
Subjective - Date and Time Seen Date: 07/07/18 Time: 07:09 Subjective Narrative: Pt. has no complaints overnight. he has not been up yet today so in not sure what his sx are doing this am. Objective - Review of Systems Generalized/Overall Review: Reports: Weakness. Denies: Chills, Fever, Malaise EENTM: Reports: No Symptoms Reported Respiratory: Reports: No Symptoms Reported Cardiac: Reports: No Symptoms Reported Abdominal: Reports: No Symptoms Reported Genitourinary Symptoms: Reports: No Symptoms Reported Musculoskeletal Complaints: Reports: Back Pain Neurological: Reports: Weakness Skin: Reports: No Symptoms Reported Endocrine: Reports: No Symptoms Reported - Vitals Vitals: Last Vital Signs Temp 36.9 C 07/07/18 02:00 Pulse 87 07/07/18 06:38 Resp 26 H 07/07/18 06:38 BP 133/84 07/07/18 06:38 Pulse Ox 94 07/07/18 06:38 - Abnormal Lab Findings Abnormal Lab Findings: Abnormal Lab Results 07/06/18 07/06/18 07/06/18 Range/Units 17:42 17:42 17:42 Immature Gran # (Auto) 0.04 H (0.000-0.0310) K/mm3 Neutrophils % 77.0 H (42-75.0) % Lymphocytes % 8.6 L (20-51) % Monocytes % 12.2 H (0.0-9) % Neutrophils # 7.3 H (1.3-6.0) K/mm3 Lymphocytes # 0.81 L (1.5-3.5) k/mm3 Monocytes # 1.2 H (0.0-1.0) k/mm3 PT 12.5 H (9.1-10.7) Seconds INR (Anticoag Therapy) 1.27 H (0.92-1.08) INR Sodium 131 L (132-142) mmol/L Carbon Dioxide 23.8 L (24-32.6) mmol/L Anion Gap 14.3 H (6.8-13.8) mmol/L Random Glucose 115 H (70-110) mg/dL Urine Blood (NEGATIVE) /ul 07/06/18 Range/Units 20:48 Immature Gran # (Auto) (0.000-0.0310) K/mm3 Neutrophils % (42-75.0) % Lymphocytes % (20-51) % Monocytes % (0.0-9) % Neutrophils # (1.3-6.0) K/mm3 Lymphocytes # (1.5-3.5) k/mm3 Monocytes # (0.0-1.0) k/mm3 PT (9.1-10.7) Seconds INR (Anticoag Therapy) (0.92-1.08) INR Sodium (132-142) mmol/L Carbon Dioxide (24-32.6) mmol/L Anion Gap (6.8-13.8) mmol/L Random Glucose (70-110) mg/dL Urine Blood 5 H (NEGATIVE) /ul - EKG/Xray Findings EKG: NSR - Exam Constitutional: Present: Alert, Oriented x3, Cooperative, No distress ENT Exam: Present: hearing grossly normal Neck: Present: supple Respiratory: Present: lungs clear, normal breath sounds, no respiratory distress, no accessory muscle use Cardiovascular/Chest: Present: regular rate, rhythm, no murmur, other - no carotid bruits Abdomen: Present: Normal bowel sounds, soft, nontender, nondistended, no rebound tenderness, no hepatospenomegaly Extremity: Present: no pedal edema, no calf tenderness Skin Exam: Present: normal color Neurologic: Present: chief cruiser II-XII nml as tested, normal cerebellar test - no dysmetria - though this did seem to worsen over time as he continued to go nose to finger (both wavering hand and forgetting where he was in the sequence), no motor/sensory deficits, normal mood/affect, oriented x 3, other - questionable cogwheel rigidity, R>L. Absent: motor weakness Appearance: Present: appropriate appearance, appropriate insight, neat, no memory impairment Eye contact: Present: cooperative, good eye contact, normal speech Thoughts: Present: normal thought pattern, no apparent hallucination Assessment/Plan - Problems/Diagnosis (1) Balance disorder Problem: Acute Narrative: will get PT eval to assess for possible outpt Tx that may have benefit to him. Given his back pain issues this could be spinal stenosis issues. will w/u as outpt. (2) Vertigo Problem: Acute Narrative: his exam is negative for any acute neurologic deficits. Again, will have PT evaluate for Tx benefit. Looking at past MRI results 1 year ago (when he had similar sx and issues) there were concerns for possible demylenating vs microvascular CVA's. His BP's are good and he is on ASA therapy so I don't believe this is an acute CVA issue, but still could be a localized issue as expressed by ERP. Feel any additional testing though can be done out of the hospital as it won't change our current tx strategy acutely. (3) Hypertension Problem: Chronic Qualifiers: Hypertension type: essential hypertension Qualified Code(s): I10 - Essential (primary) hypertension Narrative: BP's are in a good range, therefore doubt CVA. no changes at this time to meds. (4) Discharge planning issues Problem: Acute Narrative: anticipate discharge home later today unless his status changes.
[2018-07-07] MEDS: IMIPRAMINE HCL 25 MG TABLET PO SCH (08:35)
[2018-07-07] MEDS ORDERED: CHOLECALCIFEROL 1,000 UNIT CAPSULE PO SCH (09:00)
[2018-07-07] MEDS ORDERED: ASPIRIN 81 MG TABLET.DR PO SCH (09:00)
--- NOTE | 2018-07-07 12:15 | DS ---
(1) Balance disorder Problem: Acute (2) Vertigo Problem: Acute (3) Hypertension Problem: Chronic Qualifiers: Hypertension type: essential hypertension Qualified Code(s): I10 - Essential (primary) hypertension (4) Discharge planning issues Problem: Acute Description of Stay: Pt. admitted for possible CVA given vertigo and LE balance issues. Given his PMH of previous DVT/PE and previous MRI of brain 1 year ago showing possible numerous infarcts, this was definitely a legitimate reason for at least observing overnight in the hospital. During his stay his sx did not worsen, his SBP's remained in the 130's and PT felt his function was good enough to go home with outpt. PT. He will discharged home with outpt. PT, continuing him on his current meds. It is recommended he use a walker while ambulating which he has acquired. Procedures Performed: none Results and Findings: Lab Pending Results 07/06/18 17:42: WBC 9.4, RBC 5.48, Hgb 16.7, Hct 50.7, MCV 92.5, MCH 30.5, MCHC 32.9, RDW 13.7, Plt Count 213, MPV 9.8, Immature Gran % (Auto) 0.40, Immature Gran # (Auto) 0.04 H, Neutrophils % 77.0 H, Lymphocytes % 8.6 L, Monocytes % 12.2 H, Eosinophils % 1.2, Basophils % 0.6, Nucleated RBC % 0.0, Neutrophils # 7.3 H, Lymphocytes # 0.81 L, Monocytes # 1.2 H, Eosinophils # 0.1, Absolute Basophils 0.1 07/06/18 17:42: Sodium 131 L, Plasma Sodium 131, Potassium 4.1, Chloride 97, Carbon Dioxide 23.8 L, Anion Gap 14.3 H, BUN 16, Creatinine 0.90, Est GFR (Non- Af Amer) 87, BUN/Creatinine Ratio 17.8, Random Glucose 115 H, Calcium 9.1, Calcium Adj for Albumin 9.2, Magnesium 1.9, Total Bilirubin 0.7, AST 21, ALT 35, Alkaline Phosphatase 78, Total Protein 7.3, Albumin 3.5 07/06/18 17:42: Lactic Acid, Venous 1.2 07/06/18 17:42: PT 12.5 H, INR (Anticoag Therapy) 1.27 H, PTT ([place]) 28.9 07/06/18 20:48: Urine Color Yellow, Urine Appearance Clear, Urine pH 6.5, Ur Specific [place] 1.010, Urine Protein Negative, Urine Glucose (UA) Negative, Urine Ketones Negative, Urine Blood 5 H, Urine Nitrate Negative, Urine Bilirubin Negative, Urine Urobilinogen Normal, Ur Leukocyte Esterase Negative, Urine RBC Trace, Urine WBC None seen, Ur Epithelial Cells Trace, Urine Bacteria Trace, Urine Culture Comments No culture indicated Discharge Location: Home Disposition: Home self-care Condition: Fair Discharge Activity: Activity as tolerated - use walker when ambulating. Discharge Diet: General/regular food Referrals: Varun Pichardo MD [Primary Care Provider] - One Week Complete Home Medications List: Complete Home Medication List: Cholecalciferol (Vitamin D3) [Vitamin D3] 1,000 unit PO DAILY 01/28/17 Multivitamin [Multivitamins] 1 ea PO DAILY 05/12/17 Acetaminophen [Tylenol] 650 mg PO Q6H PRN tab 05/15/17 imipramine 25 mg tablet 25 mg PO BID #60 tab 04/06/18 sulfamethoxazole 800 mg-trimethoprim 160 mg tablet 1 tab PO Q12H #28 tab 06/23/18 Aspirin [Aspir-Low] 81 mg PO DAILY 07/06/18 Sennosides/Docusate Sodium [Senokot-S] 2 tab PO HS PRN 07/06/18 Amb Orders for Discharge: PT Evaluation and Treatment* Time Frame: 1 Week, Facility: [facility], Location: Physical Therapy
[2018-07-07 13:25] VITALS: BP 128/76
== END 2018-07-07 14:07 | disposition home or self-care (01) ==
LOC: MS 17:20 → ER 17:20 → MS 19:00
PROVIDERS: ADMIT Internal Medicine; ATTEND Family Medicine
DX: G47.33 Obstructive sleep apnea (adult) (pediatric); R26.89 Other abnormalities of gait and mobility; I63.9 Cerebral infarction, unspecified; R42 Dizziness and giddiness; I10 Essential (primary) hypertension
CPT/HCPCS: 36415; 70450; 80053; 81001; 83605; 83735; 85025; 85610; 85730; 93005; 94660; 97162; 99285; G0378

== ENCOUNTER 2018-12-27 13:36 | Inpatient (IN) ==
[2018-12-27] MEDS ORDERED: NORMAL SALINE 1,000 ML IV ONE (13:54)
[2018-12-27 14:09] LABS: Hematocrit 51.1 % (42.0-52.0); Mean Cell Volume 95.5 fl (78-100); Mean Corpuscular Hemoglobin 31.8 pg (27-31); Mean Corpuscular Hgb Conc 33.3 g/dl (32-36); Mean Platelet Volume 9.6 fl (8-11.3); Platelet Count 207 K/mm3 (150-450); Red Blood Count 5.35 M/mm3 (4.7-6.0)
[2018-12-27 14:10] LABS: Total Cells Counted 100
[2018-12-27 14:22] LABS: Band 6 % (0-2.0); Lymphocyte 6 % (20-51); Monocyte 3 % (0-9); Neutrophil 85 % (42-75); Neutrophil # 24.7 K/mm3 (1.3-6.0); Platelet Estimate Normal (NORMAL); RBC Morphology Normal (NORMAL)
--- NOTE | 2018-12-27 14:27 | ERNOTE ---
Neuro HPI ER Record Date of Service: 12/27/18 Presenting Symptoms: confusion Time Seen by Provider: 12/27/18 13:48 Source: patient, EMS Exam Limitations: clinical condition, other - confusion Immunizations: IMMUNIZATION HX Immunizations Up to Date Yes History of Influenza Vaccine No Hx Pneumococcal Vaccination No Allergies/Adverse Reactions: Allergies Allergy/AdvReac Type Severity Reaction Status Date / Time No Known Allergies Allergy Verified 07/16/18 13:39 Home Medications: HOME MEDICATIONS Cholecalciferol (Vitamin D3) [Vitamin D3] 1,000 unit PO DAILY 01/28/17 [Last Taken Unknown] Multivitamin [Multivitamins] 1 ea PO DAILY 05/12/17 [Last Taken Unknown] Acetaminophen [Tylenol] 650 mg PO Q6H PRN tab 05/15/17 [Last Taken Unknown] Aspirin [Aspir-Low] 81 mg PO DAILY 07/06/18 [Last Taken Unknown] Sennosides/Docusate Sodium [Senokot-S] 2 tab PO HS PRN 07/06/18 [Last Taken Unknown] imipramine HCl 25 mg tablet See Rx Instructions .ROUTE .COMPLEX #60 tablet 08/13/18 [Last Taken Unknown] - History of Present Illness Narrative: patient presents to ed with c/o confusion and fever upon waking this am Onset: upon waking Severity: mild Context: other - no reported injury - Character of Deficits New weakness: Present: general (diffuse) Additional Deficits: Present: weakness Baseline Cognition: Present: alert, oriented x 4 Baseline Gait: Present: walks w/o assistance Associated Symptoms: Reports: fever/chills, altered mental status, trouble concentrating Prior Treament: Reports: similar symptoms before Review of Systems - Review of Systems Constitutional: Present: See HPI, fever, weakness, fatigue EYE: Present: no symptoms reported ENT: Present: no symptoms reported Respiratory: Present: no symptoms reported Cardiology: Present: no symptoms reported Gastrointestinal/Abdominal: Present: no symptoms reported Genitourinary: Present: See HPI, frequency, dysuria Musculoskeletal: Present: no symptoms reported Skin: Present: no symptoms reported Neurological: Present: no symptoms reported Endocrine: Present: no symptoms reported Hematologic/Lymphatic: Present: no symptoms reported Psych: Present: no symptoms reported All Other Systems: All systems neg except as marked Medical History (Last Reviewed 07/20/18 @ 13:11 by Varun Pichardo MD) Urinary incontinence (Chronic) Onset Date: ~03/03/14 Erectile dysfunction (Chronic) Onset Date: ~03/03/14 Constipation (Chronic) Onset Date: ~09/10/12 Balanitis (Chronic) Onset Date: ~03/03/14 Seborrheic dermatitis of scalp (Chronic) Obstructive sleep apnea (Chronic) History of blood clots (Chronic) DVT (deep venous thrombosis) Onset Date: Unknown Kidney laceration Onset Date: Unknown No pertinent family history Onset Date: Unknown Prostate cancer Onset Date: ~04/01/15 Pulmonary contusion Onset Date: Unknown Pulmonary embolism Onset Date: Unknown Retroperitoneal hemorrhage Onset Date: Unknown Rib fracture Onset Date: Unknown Surgical History: Surgical History (Last Reviewed 07/20/18 @ 13:11 by Varun Pichardo MD) H/O elbow surgery Onset Date: Unknown H/O wisdom tooth extraction Onset Date: Unknown History of colonoscopy Onset Date: ~2001 History of prostatectomy Onset Date: ~2001 Hx of cataract surgery Onset Date: Unknown Hx of tonsillectomy Onset Date: Unknown S/P rotator cuff repair Onset Date: Unknown Family History: Family History (Last Reviewed 07/20/18 @ 13:11 by Varun Pichardo MD) Other No pertinent family history Social History: (Last Updated 07/20/18 @ 13:15 by Varun Pichardo MD) Social History: Marital status: household members: spouse current occupational status: retired Service: Yes branch: [employer] Tobacco: Smoking Status: Never smoker Alcohol: alcohol intake: current Substance Use: substance use type: does not use Dietary Habits: caffeine: Yes Physical Exam - Physical Exam General Appearance: Present: no apparent distress Head Exam: Present: normal inspection, no evidence of injury Eye Exam: Normal inspection: bilateral, PERRL: bilateral, EOMI: bilateral Ears, Nose, Throat: Present: normal ENT inspection, normal pharynx Neck: Present: normal inspection, nontender Respiratory: Present: no respiratory distress, normal breath sounds, no a ccessory muscle use, chest nontender, lungs clear Cardiovascular/Chest: Present: regular rate, rhythm, no murmur, normal peripheral pulses Gastrointestinal/Abdominal: Present: normal bowel sounds, nontender, nondistended, soft, no organomegaly Male Genitals Exam: Present: normal genitalia Back Exam: Present: normal inspection, normal range of motion, no CVA tenderness, no vertebral tenderness Extremity Exam: Present: normal inspection, non-tender, normal range of motion, no edema Neurological Exam: Present: alert, oriented, normal mood/affect, no motor/sensory deficits DTR: N=norm/NB=norm/brisk/A=abs/DD=dull/dimin/HC=hyperactive: Bicep (R): Normal, Bicep (L): Normal, Tricep (R): Normal, Tricep (L): Normal, Knee (R): Normal, Knee (L): Normal, Ankle (R): Normal, Ankle (L): Normal Skin Exam: Present: normal color, warm/dry Lymphatic Exam: Present: no adenopathy [place] Coma Scale - Assess Eye Opening: Spontaneous Motor: Abnormal Flexion Verbal: Oriented - Total Coma Scale Total: 12 Progress - Date and Time Seen: Date and Time: 12/27/18 15:59 condition unchanged, caase discussed with dr pichardo, accepted for admission - Results and Orders Patient's Lab Results:: I have reviewed the patient's lab results. - Vital Signs Patient's Vital Signs:: I have reviewed the patient's vital signs. Vital Signs: Vital Signs 12/27/18 13:36 Temperature 37.9 C Pulse Rate 99 Respiratory Rate 26 H Blood Pressure 126/72 O2 Sat by Pulse Oximetry 92 L - EKG EKG #1 EKG: NSR EKG read: Interp. by me - X-Ray X-Ray #1 X-Ray: chest Interpretation: Discd w/ radiologist - atelectasis vs vs early pneumonia - Progress/Reassessment Chief Complaint: Altered Mental Status Plan - Plan Plan: to admit to hospital Departure Clinical Impression: Urinary tract infection - Departure Disposition: Short Term Hospital Inpatient Condition: Stable Instructions: Urinary Tract Infection, Adult, [id number] Referrals: Varun Pichardo MD [Primary Care Provider] -
[2018-12-27 14:34] LABS: Albumin * 3.2 gm/dl (3.4-5.0); Anion Gap 12.7 mmol/L (6.8-13.8); BUN/Creatinine Ratio 18.9 (9.0-21.6); CRP 13.5 mg/dL (0.0-0.9); Ca. Corrected For Albumin 9.1 mg/dL (8.4-10.2); Calcium * 8.8 mg/dL (7.9-10.9); Carbon Dioxide 27.9 mmol/L (24-32.6); Potassium 3.6 mmol/L (3.4-4.6); Total Protein 6.9 gm/dL (6.2-8.2)
[2018-12-27 15:02] LABS: Urine Bilirubin Negative (NEGATIVE); Urine Blood 25 /ul (NEGATIVE); Urine Ketone Negative (NEGATIVE); Urine Nitrite Negative (NEGATIVE); Urine Protein 15 mg/dL (NEGATIVE); Urine Specific Gravity 1.015 SP.GR. (1.005-1.030); Urine pH 6.5 pH (5.0-7.0)
[2018-12-27 15:12] LABS: Urine Appearance Clear (CLEAR); Urine Bacteria TRACE; Urine Color Yellow
[2018-12-27] MEDS ORDERED: cefTRIAXone SODIUM 1,000 MG/100 ML BAG IV ONE (15:40)
[2018-12-27] MEDS: NORMAL SALINE 1,000 ML IV PRN (16:29)
--- NOTE | 2018-12-27 18:31 | HP ---
Chief Complaint - Chief Complaint Date of Service: 12/27/18 Time of Service: 18:26 Chief Complaint: LE weakness and urinary hesitancy. History of Present Illness: Pt. is 78 yo male who had been having increasing LE weakness and malaise for a few days. On the day of admission he (and his who is present) stated that he couldn't stand at all and he was not acting right - showing some confusion. He denies F/C, but did feel weak and tired. He denied urinary sx's but does state that his foreskin does not retract due to significant scarring over the years and him not being circumcised as a baby. PO intake had been good and no ill contacts. he did have a significant cough, but no SOB/KAM. In the ER his temp was 37.9, HR and BP were wnl, but he was confused and had to be brought in on stretcher via EMS due to not being able to walk. His WBC was 29 with a 6% bandemia and his lactic acid was 2.1. His CXR was negative for PNA, but his UA was consistent with a UTI. Given his other findings of weakness, encephalopathy, bandemia and elevated lactic acid, he showed he was septic from a UTI and was given aggressive fluids and immediate IV abx and admitted for further treatment. Medical History (Last Reviewed 12/27/18 @ 16:58 by Irene Garza RN) Urinary incontinence (Chronic) Onset Date: ~03/03/14 Erectile dysfunction (Chronic) Onset Date: ~03/03/14 Constipation (Chronic) Onset Date: ~09/10/12 Balanitis (Chronic) Onset Date: ~03/03/14 Seborrheic dermatitis of scalp (Chronic) Obstructive sleep apnea (Chronic) History of blood clots (Chronic) DVT (deep venous thrombosis) Onset Date: Unknown Kidney laceration Onset Date: Unknown No pertinent family history Onset Date: Unknown Prostate cancer Onset Date: ~04/01/15 Pulmonary contusion Onset Date: Unknown Pulmonary embolism Onset Date: Unknown Retroperitoneal hemorrhage Onset Date: Unknown Rib fracture Onset Date: Unknown Surgical History: Surgical History (Last Reviewed 12/27/18 @ 16:58 by Irene Garza RN) H/O elbow surgery Onset Date: Unknown H/O wisdom tooth extraction Onset Date: Unknown History of colonoscopy Onset Date: ~2001 History of prostatectomy Onset Date: ~2001 Hx of cataract surgery Onset Date: Unknown S/P rotator cuff repair Onset Date: Unknown Family History: Family History (Last Reviewed 12/27/18 @ 16:59 by Irene Garza RN) Other No pertinent family history Social History: (Last Reviewed 12/27/18 @ 16:59 by Irene Garza RN) Social History: Marital status: household members: spouse current occupational status: retired Service: Yes branch: [employer] Tobacco: Smoking Status: Never smoker Alcohol: alcohol intake: current Substance Use: substance use type: does not use Dietary Habits: caffeine: Yes Review Of Systems (GEN) - Review of Systems Generalized/Overall Review: Present: Weakness, Malaise, Fatigue. Absent: Chills, Fever EENTM: Present: No Symptoms Reported Respiratory: Present: Cough. Absent: Shortness of Breath Cardiac: Absent: Chest Pain, Edema, Palpitations Abdominal: Present: Nausea. Absent: Vomiting, Abdominal Pain, Constipation, Diarrhea Genitourinary: Present: Burning, Hesitancy Musculoskeletal: Present: Back Pain Neurological: Present: Weakness Skin: Present: Lesions Endocrine: Present: No Symptoms Reported Immunizations: IMMUNIZATION HX Immunizations Up to Date Yes History of Influenza Vaccine No Hx Pneumococcal Vaccination No Allergies/Adverse Reactions: Allergies Allergy/AdvReac Type Severity Reaction Status Date / Time No Known Allergies Allergy Verified 07/16/18 13:39 Home Medications: HOME MEDICATIONS Cholecalciferol (Vitamin D3) [Vitamin D3] 1,000 unit PO DAILY 01/28/17 [Last Taken Unknown] Multivitamin [Multivitamins] 1 ea PO DAILY 05/12/17 [Last Taken Unknown] Acetaminophen [Tylenol] 650 mg PO Q6H PRN tab 05/15/17 [Last Taken Unknown] Aspirin [Aspir-Low] 81 mg PO DAILY 07/06/18 [Last Taken Unknown] Sennosides/Docusate Sodium [Senokot-S] 2 tab PO HS PRN 07/06/18 [Last Taken Unknown] Imipramine HCl [Tofranil] 25 mg PO BID 12/27/18 [Last Taken Unknown] Exam - Exam Vital Signs: Vital Signs - Last Taken Temp 37.6 C 12/27/18 16:44 Pulse 91 12/27/18 16:58 Resp 39 H 12/27/18 16:44 BP 125/68 12/27/18 16:44 Pulse Ox 94 12/27/18 16:44 Constitutional: Present: Alert, Oriented x3, Cooperative, Mild distress, Moderate distress, Elderly ENT Exam: Present: hearing grossly normal Eye Exam: bilateral eye: normal inspection, PERRL, EOMI Neck: Present: supple Back Exam: Present: CVA tenderness (L) Respiratory: Present: lungs clear, normal breath sounds, no respiratory distress, no accessory muscle use Cardiovascular/Chest: Present: regular rate, rhythm Abdomen: Present: Normal bowel sounds, soft, nondistended, no hepatospenomegaly, tender - LUQ /Rectal: Present: Other - foreskin scarred, but mobile over glans, 3mm opening that is not retractable and appears scarred. No rubor or purulent discharge - clear urine in area. Extremity: Present: no pedal edema, other - strength appears normal UE and LE but does fatigue quickly. Skin Exam: Present: normal color Lymphatic: Present: no adenopathy Neurologic: Present: privacy manager II-XII nml as tested, alert, normal mood/affect, oriented x 3 Appearance: Present: appropriate appearance, appropriate insight, neat Eye contact: Present: cooperative, good eye contact, normal speech Thoughts: Present: normal thought pattern, no apparent hallucination Diagnostic Studies: Abnormal Lab Results 12/27/18 12/27/18 12/27/18 Range/Units 14:05 14:05 14:05 WBC 29.0 H (4.0-10.5) K/mm3 MCH 31.8 H (27-31) pg Neutrophils % (Manual) 85 H (42-75) % Band Neuts % (Manual) 6 H (0-2.0) % Lymphocytes % (Manual) 6 L (20-51) % Neutrophils # (Manual) 24.7 H (1.3-6.0) K/mm3 Random Glucose 150 H (70-110) mg/dL Lactic Acid, Venous 2.1 H (0.4-2.0) mmol/L Total Bilirubin 2.0 H (0.0-1.1) mg/dL C-Reactive Prot, Quant 13.5 H (0.0-0.9) mg/dL Albumin 3.2 L (3.4-5.0) gm/dl Urine Protein (NEGATIVE) mg/dL Urine Glucose (UA) (NEGATIVE) mg/dL Urine Blood (NEGATIVE) /ul Urine Urobilinogen (NORMAL) EU/dl Ur Leukocyte Esterase (NEGATIVE) /ul Urine RBC (0-5) /hpf Urine WBC (0-5) /hpf 12/27/18 12/27/18 Range/Units 14:58 17:10 WBC (4.0-10.5) K/mm3 MCH (27-31) pg Neutrophils % (Manual) (42-75) % Band Neuts % (Manual) (0-2.0) % Lymphocytes % (Manual) (20-51) % Neutrophils # (Manual) (1.3-6.0) K/mm3 Random Glucose (70-110) mg/dL Lactic Acid, Venous 2.3 H* (0.4-2.0) mmol/L Total Bilirubin (0.0-1.1) mg/dL C-Reactive Prot, Quant (0.0-0.9) mg/dL Albumin (3.4-5.0) gm/dl Urine Protein 15 H (NEGATIVE) mg/dL Urine Glucose (UA) 100 H (NEGATIVE) mg/dL Urine Blood 25 H (NEGATIVE) /ul Urine Urobilinogen 2.0 H (NORMAL) EU/dl Ur Leukocyte Esterase 75 H (NEGATIVE) /ul Urine RBC 5-10 H (0-5) /hpf Urine WBC 5-10 H (0-5) /hpf Laboratory Results WBC 29.0 K/mm3 (4.0-10.5) H 12/27/18 14:05 RBC 5.35 M/mm3 (4.7-6.0) 12/27/18 14:05 Hgb 17.0 gm/dL (13.5-18.0) 12/27/18 14:05 Hct 51.1 % (42.0-52.0) 12/27/18 14:05 MCV 95.5 fl (78-100) 12/27/18 14:05 MCH 31.8 pg (27-31) H 12/27/18 14:05 MCHC 33.3 g/dl (32-36) 12/27/18 14:05 RDW 13.0 % (11.5-14.0) 12/27/18 14:05 Plt Count 207 K/mm3 (150-450) 12/27/18 14:05 MPV 9.6 fl (8-11.3) 12/27/18 14:05 Neutrophils % (Manual) 85 % (42-75) H 12/27/18 14:05 Band Neuts % (Manual) 6 % (0-2.0) H 12/27/18 14:05 Lymphocytes % (Manual) 6 % (20-51) L 12/27/18 14:05 Monocytes % (Manual) 3 % (0-9) 12/27/18 14:05 Neutrophils # (Manual) 24.7 K/mm3 (1.3-6.0) H 12/27/18 14:05 Lymphocytes # (Manual) 1.7 k/mm3 (1.5-3.5) 12/27/18 14:05 Monocytes # (Manual) 0.9 k/mm3 (0.0-1.0) 12/27/18 14:05 Platelet Estimate Normal (NORMAL) 12/27/18 14:05 RBC Morphology Normal (NORMAL) 12/27/18 14:05 Sodium 138 mmol/L (132-142) 12/27/18 14:05 Plasma Sodium 139 mmol/L (130-142) 12/27/18 14:05 Potassium 3.6 mmol/L (3.4-4.6) 12/27/18 14:05 Chloride 101 mmol/L (97-106) 12/27/18 14:05 Carbon Dioxide 27.9 mmol/L (24-32.6) 12/27/18 14:05 Anion Gap 12.7 mmol/L (6.8-13.8) 12/27/18 14:05 BUN 18 mg/dL (6-23) 12/27/18 14:05 Creatinine 0.95 mg/dL (0.4-1.4) 12/27/18 14:05 Est GFR (Non-Af Amer) 82 mL/min (60-130) 12/27/18 14:05 BUN/Creatinine Ratio 18.9 (9.0-21.6) 12/27/18 14:05 Random Glucose 150 mg/dL (70-110) H 12/27/18 14:05 Lactic Acid, Venous 2.3 mmol/L (0.4-2.0) H* 12/27/18 17:10 Calcium 8.8 mg/dL (7.9-10.9) 12/27/18 14:05 Calcium Adj for Albumin 9.1 mg/dL (8.4-10.2) 12/27/18 14:05 Total Bilirubin 2.0 mg/dL (0.0-1.1) H 12/27/18 14:05 AST 23 U/L (0-48) 12/27/18 14:05 ALT 19 U/L (19-67) 12/27/18 14:05 Alkaline Phosphatase 60 U/L (50-170) 12/27/18 14:05 C-Reactive Prot, Quant 13.5 mg/dL (0.0-0.9) H 12/27/18 14:05 Total Protein 6.9 gm/dL (6.2-8.2) 12/27/18 14:05 Albumin 3.2 gm/dl (3.4-5.0) L 12/27/18 14:05 Urine Color Yellow 12/27/18 14:58 Urine Appearance Clear (CLEAR) 12/27/18 14:58 Urine pH 6.5 pH (5.0-7.0) 12/27/18 14:58 Ur Specific [place] 1.015 SP.GR. (1.005-1.030) 12/27/18 14:58 Urine Protein 15 mg/dL (NEGATIVE) H 12/27/18 14:58 Urine Glucose (UA) 100 mg/dL (NEGATIVE) H 12/27/18 14:58 Urine Ketones Negative mg/dL (NEGATIVE) 12/27/18 14:58 Urine Blood 25 /ul (NEGATIVE) H 12/27/18 14:58 Urine Nitrate Negative (NEGATIVE) 12/27/18 14:58 Urine Bilirubin Negative mg/dl (NEGATIVE) 12/27/18 14:58 Prot Sulfosalicylic Acd Negative mg/dL (0) 12/27/18 14:58 Urine Urobilinogen 2.0 EU/dl (NORMAL) H 12/27/18 14:58 Ur Leukocyte Esterase 75 /ul (NEGATIVE) H 12/27/18 14:58 Urine RBC 5-10 /hpf (0-5) H 12/27/18 14:58 Urine WBC 5-10 /hpf (0-5) H 12/27/18 14:58 Ur Epithelial Cells None seen /hpf (0-5) 12/27/18 14:58 Urine Bacteria Trace (NONE) 12/27/18 14:58 Urine Culture Comments Culture to follow 12/27/18 14:58 Assessment/Plan - Assessment/Plan (1) Leukocytosis Assessment: due to sepsis given his bandemia. Problem: Acute Qualifiers: Leukocytosis type: bandemia Qualified Code(s): D72.825 - Bandemia (2) Lower extremity weakness Assessment: due to his acute illness/infection. Fits the pattern of an encephalopathy given his reported confusion by his at the time he came to ER. This does appear to be improved. Problem: Acute (3) Sepsis secondary to UTI Assessment: given his CVA tenderness, temp to 37.9, Lactic acid that went from 2.1 to 2.3 despite aggressive IVF and his UA showing infection and his confusion and inability to walk - this shows signs of significant illness consistent with sepsis and also that he most likely has pyelonephritis (which is c/w an early abscess of the kidney). Will continue aggressive IVF, IV abx as this is his greatest opportunity to lower his morbidity and mortality rate. I expect him to be here 2 midnights in order to appropriately reverse his current condition and get him back to ambulating indepently as he normally does. Problem: Acute (4) Discharge planning issues Assessment: See notes on sepsis. I anticipate patient being here a minimum of 2 midnights given his issues at time of admission, though it is possible he could recover more rapidly due to rapid and aggressive treatment in the ER, he does meet criteria for inpatient admission and needs ongoing care at this time. Problem: Acute
[2018-12-27] MEDS ORDERED: ACETAMINOPHEN 325 MG TABLET PO PRN (18:41)
[2018-12-27] MEDS ORDERED: SENNOSIDES/DOCUSATE SODIUM 1 TAB TABLET PO PRN (18:41)
[2018-12-27] MEDS ORDERED: RINGER'S SOLUTION,LACTATED 1,000 ML IV PRN (18:44)
[2018-12-27] MEDS: IMIPRAMINE HCL 25 MG TABLET PO SCH (20:14)
[2018-12-28] MEDS: NORMAL SALINE 1,000 ML IV PRN ×2 (00:39→09:09)
[2018-12-28 05:46] LABS: Hematocrit 44.8 % (42.0-52.0); Mean Cell Volume 95.3 fl (78-100); Mean Corpuscular Hemoglobin 31.9 pg (27-31); Mean Corpuscular Hgb Conc 33.5 g/dl (32-36); Mean Platelet Volume 9.8 fl (8-11.3); Platelet Count 185 K/mm3 (150-450); White Blood Count 23.4 K/mm3 (4.0-10.5)
[2018-12-28 05:51] LABS: Total Cells Counted 100
[2018-12-28 06:08] LABS: Band 2 % (0-2.0); Eosinophil 1 % (0-3); Lymphocyte 9 % (20-51); Monocyte 5 % (0-9); Neutrophil 83 % (42-75); Neutrophil # 19.4 K/mm3 (1.3-6.0); Platelet Estimate Normal (NORMAL); RBC Morphology Normal (NORMAL)
--- NOTE | 2018-12-28 08:02 | PN ---
Subjective - Date and Time Seen Date: 12/28/18 Time: 07:41 Subjective Narrative: Pt. feels a little better this am. Tolerating PO ok, but still feels very weak and unbalanced when walking. He has some L sided back pain, but denies fevers and chills. Objective - Review of Systems Generalized/Overall Review: Reports: Weakness, Malaise. Denies: Chills, Fever EENTM: Reports: No Symptoms Reported Respiratory: Reports: Cough. Denies: Shortness of Breath, Orthopnea Cardiac: Denies: Chest Pain, Edema, Palpitations Abdominal: Reports: No Symptoms Reported Genitourinary Symptoms: Reports: Burning, Frequency, Hesitancy Musculoskeletal Complaints: Reports: Back Pain Neurological: Reports: Weakness Skin: Reports: Dryness Endocrine: Reports: No Symptoms Reported - Vitals Vitals: Last Vital Signs Temp 36.9 C 12/28/18 06:45 Pulse 84 12/28/18 06:45 Resp 18 12/28/18 06:45 BP 138/69 12/28/18 06:45 Pulse Ox 98 12/28/18 06:45 - Abnormal Lab Findings Abnormal Lab Findings: Abnormal Lab Results 12/27/18 12/27/18 12/27/18 Range/Units 14:05 14:05 14:05 WBC 29.0 H (4.0-10.5) K/mm3 MCH 31.8 H (27-31) pg Neutrophils % (Manual) 85 H (42-75) % Band Neuts % (Manual) 6 H (0-2.0) % Lymphocytes % (Manual) 6 L (20-51) % Neutrophils # (Manual) 24.7 H (1.3-6.0) K/mm3 Monocytes # (Manual) (0.0-1.0) k/mm3 Random Glucose 150 H (70-110) mg/dL Lactic Acid, Venous 2.1 H (0.4-2.0) mmol/L Total Bilirubin 2.0 H (0.0-1.1) mg/dL C-Reactive Prot, Quant 13.5 H (0.0-0.9) mg/dL Albumin 3.2 L (3.4-5.0) gm/dl Urine Protein (NEGATIVE) mg/dL Urine Glucose (UA) (NEGATIVE) mg/dL Urine Blood (NEGATIVE) /ul Urine Urobilinogen (NORMAL) EU/dl Ur Leukocyte Esterase (NEGATIVE) /ul Urine RBC (0-5) /hpf Urine WBC (0-5) /hpf 12/27/18 12/27/18 12/28/18 Range/Units 14:58 17:10 05:34 WBC 23.4 H (4.0-10.5) K/mm3 MCH 31.9 H (27-31) pg Neutrophils % (Manual) 83 H (42-75) % Band Neuts % (Manual) (0-2.0) % Lymphocytes % (Manual) 9 L (20-51) % Neutrophils # (Manual) 19.4 H (1.3-6.0) K/mm3 Monocytes # (Manual) 1.2 H (0.0-1.0) k/mm3 Random Glucose (70-110) mg/dL Lactic Acid, Venous 2.3 H* (0.4-2.0) mmol/L Total Bilirubin (0.0-1.1) mg/dL C-Reactive Prot, Quant (0.0-0.9) mg/dL Albumin (3.4-5.0) gm/dl Urine Protein 15 H (NEGATIVE) mg/dL Urine Glucose (UA) 100 H (NEGATIVE) mg/dL Urine Blood 25 H (NEGATIVE) /ul Urine Urobilinogen 2.0 H (NORMAL) EU/dl Ur Leukocyte Esterase 75 H (NEGATIVE) /ul Urine RBC 5-10 H (0-5) /hpf Urine WBC 5-10 H (0-5) /hpf - Exam Constitutional: Present: Alert, Oriented x3, Cooperative, Mild distress, Elderly ENT Exam: Present: hearing grossly normal Neck: Present: supple Respiratory: Present: lungs clear, normal breath sounds, no respiratory distress, no accessory muscle use Cardiovascular/Chest: Present: regular rate, rhythm Abdomen: Present: Normal bowel sounds, soft, tender - LUQ, CVA tenderness - on Left, suprapubic tenderness /Rectal: Present: Other - foreskin scarred and unretractable. No significant erythema of foreskin or glans. Extremity: Present: normal range of motion, no calf tenderness Skin Exam: Present: normal color Neurologic: Present: carton stenciler II-XII nml as tested, oriented x 3 Appearance: Present: appropriate appearance, appropriate insight, neat, no memory impairment Eye contact: Present: cooperative, good eye contact, normal speech Thoughts: Present: normal thought pattern, no apparent hallucination Assessment/Plan - Problems/Diagnosis (1) Leukocytosis Problem: Acute Qualifiers: Leukocytosis type: bandemia Qualified Code(s): D72.825 - Bandemia Narrative: WBC is improved to 23K this am, but still significant and he shows signs of pyelonephritis. continue IV abx. (2) Lower extremity weakness Problem: Acute Narrative: due to infection. Improved but not to the degree where he would be safe to go home. He would be at high risk for falls and significant injury. another day of IV abx and treatment should lower this risk greatly by tomorrow. (3) Sepsis secondary to UTI Problem: Acute Narrative: Most likely due to a pyelonephritis given his CVA tenderness and UTI findings. He was aggressively treated with fluids and given IV abx quickly which prevented the Lactic acid from escalating rapidly, though it was escalating on admission, going from 2.1 to 2.3. Pt. had no tachycardia or fever on admission, but did show signs of acute encephalopathy/neurologic deficits from his infection given his confusion and inability to stand or walk when he was brought to the hospital, but showing signs of improvement with treatment. His temperature maxed at 37.9, again showing signs of early and appropriate treatment. (4) Discharge planning issues Problem: Acute Narrative: He showed significant signs of illness (metabolic encephalopathy, LE weakness and WBC 29k with bandemia) on admission, even without significant fevers or tachycardia or lactic acid > 2.5. Rapid and aggressive treatment prevented him from getting sicker and has definitely improved him greatly, with WBC down to 23K, but definitely not ready to go home as he is still weak and ataxic and at high fall risk going home. Another day of IV abx should improve him to the point where he can be safely discharged home without high risk for morbidity.
[2018-12-28] MEDS: IMIPRAMINE HCL 25 MG TABLET PO SCH ×2 (08:11→20:09)
[2018-12-29 06:00] LABS: Mean Cell Volume 94.9 fl (78-100); Mean Corpuscular Hemoglobin 31.6 pg (27-31); Mean Corpuscular Hgb Conc 33.3 g/dl (32-36); Neutrophil # 10.5 K/mm3 (1.3-6.0); Neutrophil % 74.1 % (42-75.0); Platelet Count 204 K/mm3 (150-450); Red Blood Count 5.06 M/mm3 (4.7-6.0); White Blood Count 14.1 K/mm3 (4.0-10.5)
[2018-12-29] MEDS: IMIPRAMINE HCL 25 MG TABLET PO SCH (09:03)
--- NOTE | 2018-12-29 11:33 | DS ---
(1) Leukocytosis Problem: Acute Qualifiers: Leukocytosis type: bandemia Qualified Code(s): D72.825 - Bandemia (2) Lower extremity weakness Problem: Acute (3) Sepsis secondary to UTI Problem: Acute (4) Discharge planning issues Problem: Acute (5) Acute metabolic encephalopathy Problem: Acute Date of Discharge:: 12/29/18 Description of Stay: Pt. was admitted for sepsis secondary to UTI, due to UA showed signs of infection, though urine Culture showed no growth. given temp to 37.9, WBC to 29K with 6% bandemia, L flank pain and a metabolic encephalopathy (confusion and inability to stand or walk) it was most likely he had a pyelonephritis that caused his sepsis, but no positive Urine culture. His lactic acid did not go above 2.5, but it did show acceleration of levels going from 2.1 to 2.3 (despite aggressive fluids) again showing signs of sepsis that was corrected with appropriate fluid and antibiotics. He was placed on Rocephin 1 gm IV q12hrs due to how sick he was and showed excellent recovery, though still was having LE weakness and ataxis on HD#2, so discharge was not possible until today. today he is back to his baseline mentation and he is ambulating without significant LE weakness and no ataxia. His L flank pain is minimal and much improved. He was discharged home on oral Bactrim as it will have good coverage and penetration into kidneys. He needs f/u with due to scarring of foreskin and inability to retract the foreskin, which may be the source of his infection. Procedures Performed: none Results and Findings: Pending Mircobiology Results 12/27/18 14:50 Blood Blood Culture - Preliminary NO GROWTH 24 HOURS 12/27/18 14:05 Blood Blood Culture - Preliminary NO GROWTH 24 HOURS Lab Pending Results 12/27/18 14:05: WBC 29.0 H, RBC 5.35, Hgb 17.0, Hct 51.1, MCV 95.5, MCH 31.8 H, MCHC 33.3, RDW 13.0, Plt Count 207, MPV 9.6, Neutrophils % (Manual) 85 H, Band N euts % (Manual) 6 H, Lymphocytes % (Manual) 6 L, Monocytes % (Manual) 3, Neutrophils # (Manual) 24.7 H, Lymphocytes # (Manual) 1.7, Monocytes # (Manual) 0.9, Platelet Estimate Normal, RBC Morphology Normal 12/27/18 14:05: Sodium 138, Plasma Sodium 139, Potassium 3.6, Chloride 101, Carbon Dioxide 27.9, Anion Gap 12.7, BUN 18, Creatinine 0.95, Est GFR (Non-Af Amer) 82, BUN/Creatinine Ratio 18.9, Random Glucose 150 H, Calcium 8.8, Calcium Adj for Albumin 9.1, Total Bilirubin 2.0 H, AST 23, ALT 19, Alkaline Phosphatase 60, C-Reactive Prot, Quant 13.5 H, Total Protein 6.9, Albumin 3.2 L 12/27/18 14:05: Lactic Acid, Venous 2.1 H 12/27/18 14:58: Urine Color Yellow, Urine Appearance Clear, Urine pH 6.5, Ur Specific [place] 1.015, Urine Protein 15 H, Urine Glucose (UA) 100 H, Urine Ketones Negative, Urine Blood 25 H, Urine Nitrate Negative, Urine Bilirubin Negative, Prot Sulfosalicylic Acd Negative, Urine Urobilinogen 2.0 H, Ur Leukocyte Esterase 75 H, Urine RBC 5-10 H, Urine WBC 5-10 H, Ur Epithelial Cells None seen, Urine Bacteria Trace, Urine Culture Comments Culture to follow 12/27/18 17:10: Lactic Acid, Venous 2.3 H* 12/27/18 22:15: Lactic Acid, Venous 1.3 12/28/18 05:34: Lactic Acid, Venous 1.1 12/28/18 05:34: WBC 23.4 H, RBC 4.70, Hgb 15.0, Hct 44.8, MCV 95.3, MCH 31.9 H, MCHC 33.5, RDW 13.0, Plt Count 185, MPV 9.8, Neutrophils % (Manual) 83 H, Band Neuts % (Manual) 2, Lymphocytes % (Manual) 9 L, Monocytes % (Manual) 5, Eosinophils % (Manual) 1, Neutrophils # (Manual) 19.4 H, Lymphocytes # (Manual) 2.1, Monocytes # (Manual) 1.2 H, Eosinophils # (Manual) 0.2, Platelet Estimate Normal, RBC Morphology Normal 12/29/18 05:30: WBC 14.1 H D, RBC 5.06, Hgb 16.0, Hct 48.0, MCV 94.9, MCH 31.6 H, MCHC 33.3, RDW 13.0, Plt Count 204, MPV 10.0, Immature Gran % (Auto) 0.40, Immature Gran # (Auto) 0.06 H, Neutrophils % 74.1, Lymphocytes % 13.4 L, Monocytes % 9.6 H, Eosinophils % 2.1, Basophils % 0.4, Nucleated RBC % 0.0, Neutrophils # 10.5 H, Lymphocytes # 1.90, Monocytes # 1.4 H, Eosinophils # 0.3, Absolute Basophils 0.1 Discharge Location: Home Disposition: Home self-care Condition: Good Discharge Activity: Activity as tolerated Discharge Diet: General/regular food Referrals: Varun Pichardo MD [Primary Care Provider] - One Week Additional Patient Instructions (free text): -Please make TCM appointment unless [facility] discharge, or if following up with outside provider. Thank you! Kalli @ [facility] 2006. Prescriptions (Any new or edited meds): Sulfamethoxazole/Trimethoprim [Bactrim Ds] 1 tab PO BID #16 tab Transmission Status: Pending to [facility] - [place], [place] Complete Home Medications List: Complete Home Medication List: Cholecalciferol (Vitamin D3) [Vitamin D3] 1,000 unit PO DAILY 01/28/17 Multivitamin [Multivitamins] 1 ea PO DAILY 05/12/17 Acetaminophen [Tylenol] 650 mg PO Q6H PRN tab 05/15/17 Aspirin [Aspir-Low] 81 mg PO DAILY 07/06/18 Sennosides/Docusate Sodium [Senokot-S] 2 tab PO HS PRN 07/06/18 Imipramine HCl [Tofranil] 25 mg PO BID 12/27/18 Sulfamethoxazole/Trimethoprim [Bactrim Ds] 1 tab PO BID #16 tab 12/29/18
[2018-12-29 12:45] VITALS: BP 139/88
== END 2018-12-29 12:48 | disposition home or self-care (01) | DRG 871 ==
LOC: ER 13:36 → MS 16:09
PROVIDERS: ADMIT Family Medicine; ATTEND Family Medicine
DX: D72.825 Bandemia; A41.9 Sepsis, unspecified organism; G93.41 Metabolic encephalopathy; R29.898 Other symptoms and signs involving the musculoskeletal system; N10 Acute pyelonephritis
CPT/HCPCS: 36415; 70450; 71010; 71045; 80053; 81001; 83605; 85007; 85025; 86140; 87040; 87086; 93005; 94660; 96361; 96365; 99285